=== PATIENT | male | born 1955 | race Caucasian/White ===

== ENCOUNTER 2017-05-08 08:51 | Day surgery (SDC) | payer OTHER ==
[2017-05-08] MEDS ORDERED: D5 LR 1000 ML 1,000 ML IV ONE (08:57)
[2017-05-08] MEDS ORDERED: DIPRIVAN VIAL 20 ML ONE (09:37)
[2017-05-08 10:16] VITALS: BP 114/81
== END 2017-05-08 10:16 | disposition home or self-care (01) ==
LOC: SURG1 08:51
PROVIDERS: ATTEND Internal Medicine Gastroenterology
PROC: 0DBN8ZX Excision of Sigmoid Colon, Via Natural or Artificial Opening Endoscopic, Diagnostic (ICD-10-PCS; principal; 2017-05-08 12:00)
PROC: 0DJD8ZZ Inspection of Lower Intestinal Tract, Via Natural or Artificial Opening Endoscopic (ICD-10-PCS; principal; 2017-05-08 12:00)
DX: Z12.11 Encounter for screening for malignant neoplasm of colon (principal); K64.0 First degree hemorrhoids
CPT/HCPCS: A4217; J3490; J7120